=== PATIENT | female | born 1945 | race Caucasian/White ===

== ENCOUNTER → 2016-12-29 | Outpatient (CLI) | payer MEDICARE, OTHER ==
[~2016-12-29] MED LIST: ASPI-557 PO; CA C1TAB81 PO; CALC-494 PO; CURAMIN PO; ESOM40CA24 PO; ESTR0.3T26 PO; FAMO10TA76 PO; FISH1CAP2 PO; MECL-103 PO; TIMO5DRO OP; VITA100049 PO; VITA1CAP64 PO; [UNRECOGNIZED DRUG - CODE] PO; [UNRECOGNIZED DRUG - CODE] PO; [UNRECOGNIZED DRUG - CODE] SQ
== END ==
LOC: WC.BC 13:09
DX: Z12.31 Encounter for screening mammogram for malignant neoplasm of breast (principal)
CPT/HCPCS: 77063; G0202